=== PATIENT | male | born 1965 | race Caucasian/White ===

== ENCOUNTER 2020-07-16 08:48 | Outpatient (REF) | payer OTHER, SELFPAY | END 2020-07-16 08:49 | disposition home or self-care (01) | LOC: HO.BBR 08:48 | PROVIDERS: Visit Provider Internal Medicine Gastroenterology | DX: Z13.89 Encounter for screening for other disorder (principal) ==

== ENCOUNTER 2020-07-30 08:07 | Outpatient (REF) | payer OTHER, SELFPAY | END 2020-07-30 08:08 | disposition home or self-care (01) | LOC: HO.BBR 08:07 | PROVIDERS: PCP Family Medicine; Visit Provider Internal Medicine Gastroenterology | DX: Z13.89 Encounter for screening for other disorder (principal) ==

== ENCOUNTER 2020-08-13 14:56 | Outpatient (REF) | payer OTHER, SELFPAY | END 2020-08-13 14:57 | disposition home or self-care (01) | LOC: HO.BBR 14:56 | PROVIDERS: Visit Provider Internal Medicine Gastroenterology | DX: Z13.89 Encounter for screening for other disorder (principal) ==

== ENCOUNTER 2020-08-27 13:37 | Outpatient (REF) | payer OTHER, SELFPAY | END 2020-08-27 13:38 | disposition home or self-care (01) | LOC: HO.BBR 13:37 | PROVIDERS: Visit Provider Internal Medicine Gastroenterology | DX: Z13.89 Encounter for screening for other disorder (principal) ==

== ENCOUNTER 2020-08-27 15:53 | Outpatient (REF) | payer OTHER, SELFPAY | END 2020-08-27 15:54 | disposition home or self-care (01) | LOC: HO.BBR 15:53 | PROVIDERS: Visit Provider Internal Medicine Gastroenterology | DX: Z13.89 Encounter for screening for other disorder (principal) ==

== ENCOUNTER 2020-09-17 11:03 | Outpatient (REF) | payer OTHER, SELFPAY | END 2020-09-17 11:04 | disposition home or self-care (01) | LOC: HO.BBR 11:03 | PROVIDERS: Visit Provider Internal Medicine Gastroenterology | DX: Z13.89 Encounter for screening for other disorder (principal) ==

== ENCOUNTER 2020-11-05 13:53 | Outpatient (REF) | payer OTHER, SELFPAY | END 2020-11-05 13:54 | disposition home or self-care (01) | LOC: HO.BBR 13:53 | PROVIDERS: PCP Family Medicine; Visit Provider Internal Medicine Gastroenterology | DX: Z13.89 Encounter for screening for other disorder (principal) ==

== ENCOUNTER 2020-11-19 13:24 | Outpatient (REF) | payer OTHER, SELFPAY | END 2020-11-19 13:25 | disposition home or self-care (01) | LOC: HO.BBR 13:24 | PROVIDERS: Visit Provider Internal Medicine Gastroenterology | DX: Z13.89 Encounter for screening for other disorder (principal) ==

== ENCOUNTER 2020-12-03 09:10 | Outpatient (REF) | payer OTHER, SELFPAY | END 2020-12-03 09:11 | disposition home or self-care (01) | LOC: HO.BBR 09:10 | PROVIDERS: PCP Family Medicine; Visit Provider Internal Medicine Gastroenterology | DX: Z13.89 Encounter for screening for other disorder (principal) ==

== ENCOUNTER 2020-12-31 08:59 | Outpatient (REF) | payer OTHER, SELFPAY | END 2020-12-31 09:00 | disposition home or self-care (01) | LOC: HO.BBR 08:59 | PROVIDERS: Visit Provider Internal Medicine Gastroenterology | DX: Z13.89 Encounter for screening for other disorder (principal) ==

== ENCOUNTER 2021-01-30 08:02 | Outpatient (REF) | payer OTHER, SELFPAY | END 2021-01-30 08:03 | disposition home or self-care (01) | LOC: HO.BBR 08:02 | PROVIDERS: PCP Family Medicine; Visit Provider Internal Medicine Gastroenterology | DX: Z13.89 Encounter for screening for other disorder (principal) ==

== ENCOUNTER 2024-01-16 14:02 | Outpatient (REF) | payer OTHER, SELFPAY | END 2024-01-16 14:03 | disposition home or self-care (01) | LOC: HO.BBR 14:02 | PROVIDERS: Visit Provider Internal Medicine Gastroenterology | DX: Z13.89 Encounter for screening for other disorder (principal) ==

== ENCOUNTER 2024-05-17 09:41 | Outpatient (REF) | payer OTHER, SELFPAY | END 2024-05-17 09:42 | disposition home or self-care (01) | LOC: HO.BBR 09:41 | PROVIDERS: PCP Family Medicine; Visit Provider Internal Medicine Gastroenterology | DX: Z13.89 Encounter for screening for other disorder (principal) ==

== ENCOUNTER 2024-09-14 10:06 | Outpatient (REF) | payer OTHER, SELFPAY ==
--- OUTSIDE RECORDS SUMMARY | 2024-09-14 10:22 | XMS_ITS | Clinical Summary ---
Author Organization [facility] Facility Address [address] [address] Care Team Providers Care Refrigerator Car Icer Name Role Phone Dominguez Simpson DO Primary Care Provider [phone] Allergies No known active allergies Medications lisinopril 40 MG tablet Take 40 mg by mouth 1 (one) time each day Active omeprazole (PriLOSEC) [address] capsule Take 20 mg by mouth 1 (one) time each day Active propranolol (INDERAL) 80 MG tablet Take 80 mg by mouth 1 (one) time each day Active gemfibrozil (LOPID) 600 MG tablet Take 600 mg by mouth 2 (two) times a day before meals Active metFORMIN (GLUCOPHAGE) 500 MG tablet Take 500 mg by mouth 2 (two) times a day with meals Active amLODIPine (NORVASC) 10 MG tablet TAKE 1 TABLET BY MOUTH 1 TIME EACH DAY. 90 tablet 3 5 Active amLODIPine (NORVASC) 10 MG tablet Take 1 tablet (10 mg total) by mouth 1 (one) time each day 90 tablet 3 4 08/21/19 25 Discontinued Active Problems Problem Noted Date Diagnosed Date Portal hypertensive gastropathy 03/08/2022 Hypertriglyceridemia 03/08/2022 Macrocytosis 03/08/2022 Nodule of lung 03/08/2022 Obese class I 03/08/2022 Patient encounter status 03/08/2022 Polyp of colon 03/08/2022 Prediabetes 03/08/2022 Benign essential hypertension 11/24/2020 Hemochromatosis 11/24/2020 Resolved Problems Problem Noted Date Diagnosed Date Resolved Date Cirrhosis 11/24/2020 11/24/2020 Liver mass 06/05/2020 11/24/2020 Encounters Date Type Department Care Team Description 08/19/2024 Refill [facility] [address] [place] [id number] Grabiel Gonzalse MD from Last 3 Months Immunizations Immunization Administration Dates Next Due Moderna SARS-COV-2 05/13/2021 Pfizer SARS-COV-2 08/14/2020,07/23/2020 Tdap 10/15/2020 Social History Tobacco Use Types Packs/Day Years Used Date Smoking Tobacco: Every Day Cigarettes Smokeless Tobacco: Never Alcohol Use Standard Drinks/Week Comments Not Currently 0 (1 standard drink = 0.6 oz pur e alcohol) Sex and Gender Information Value Date Recorded Sex Assigned at Not on file Legal Sex Male 4:54 PM EST Gender Identity Not on file Sexual Orientation Not on file Last Filed Vital Signs Vital Sign Reading Time Taken Comments Blood Pressure 108/62 11/24/2020 2:40 PM EDT Pulse 64 11/24/2020 2:40 PM EDT Temperature - - Respiratory Rate - - Oxygen Saturation 98% 11/24/2020 2:40 PM EDT Inhaled Oxygen Concentration - - Weight 95.3 kg (210 lb) 11/24/2020 2:40 PM EDT Height 177.8 cm (5' 10 ) 05/18/2019 12:00 PM EST Body Mass Index 30.13 05/18/2019 12:00 PM EST Plan of Treatment Health Maintenance Due Date Last Done Comments Pneumococcal Vaccine: 50+ Ye ars (1 of 2 - PCV) 1984 Colorectal Cancer Screening: Annual FOBT 02/02/2012 Colorectal Cancer Screening: Colonoscopy 02/02/2012 Colorectal Cancer Screening: Sigmoidoscopy 02/02/2012 Diabetes: Hemoglobin A1C 08/19/2024 03/14/2024 Diabetes: Ophthalmology Exam 08/19/2024 Diabetes: Pedal Pulse Checked 08/19/2024 Diabetes: Sensory Foot Exam 08/19/2024 Diabetes: Visual Foot Exam 08/19/2024 Influenza Vaccine (Season Ended) 2024 Hepatitis B Vaccine Completed 02/25/2023, 08/16/2022, 07/02/2022 Insurance [employer] Commercial [employer] Commercial Care Teams Refrigerator Car Icer Relationship Specialty Start Date End Date Dominguez Simpson DO [address] [place] [address] PCP - General 05/05/20
== END 2024-09-14 10:07 | disposition home or self-care (01) ==
LOC: HO.BBR 10:06
PROVIDERS: PCP Family Medicine; Visit Provider Internal Medicine Gastroenterology
DX: Z13.89 Encounter for screening for other disorder (principal)

== ENCOUNTER 2024-12-25 08:03 | Outpatient (REF) | payer OTHER, SELFPAY | END 2024-12-25 08:04 | disposition home or self-care (01) | LOC: HO.BBR 08:03 | PROVIDERS: PCP Family Medicine; Visit Provider Internal Medicine Gastroenterology | DX: Z13.89 Encounter for screening for other disorder (principal) ==